=== PATIENT | female | born 1980 | race African-American/Black ===

== ENCOUNTER 2022-04-12 15:31 | Emergency (ER) | payer MEDICAID ==
[~2022-04-12] VITALS: Ht 160 cm; Wt 86.2 kg
[2022-04-12 15:43] VITALS: BP 139/84
[2022-04-12] MEDS ORDERED: KETOROLAC TROMETHAMINE INJ 60 MG/2 ML VIAL IM ONE (17:00)
[2022-04-12] MEDS ORDERED: LIDOCAINE 5% (PATCH) 1 EA PATCH TP SCH (17:00)
[2022-04-12] MEDS ORDERED: CYCLOBENZAPRINE 10 MG TABLET PO ONE (17:00)
[2022-04-12] MEDS ORDERED: CYCLOBENZAPRINE 10 MG TABLET ONE (17:05)
[2022-04-12] MEDS ORDERED: KETOROLAC TROMETHAMINE INJ 30 MG/ML VIAL ONE (17:05)
[2022-04-12] MEDS ORDERED: LIDOCAINE 5% (PATCH) 1 EA PATCH TP ONE (17:05)
[2022-04-12] MEDS ORDERED: CYCL10TA9 PO (17:47)
[2022-04-12] MEDS ORDERED: LIDO30AD10 TP (17:47)
== END 2022-04-12 18:21 | disposition home or self-care (01) ==
LOC: ER 15:33
DX: M54.2 Cervicalgia (principal); M25.511 Pain in right shoulder; J45.909 Unspecified asthma, uncomplicated
CPT/HCPCS: 99283; 96372; J1885